=== PATIENT | female | born 1975 ===

== ENCOUNTER 2017-01-27 10:38 | Emergency (ER) | payer MEDICAID ==
--- NOTE | 2017-01-27 11:34 | C.PDOC ---
History Of Present Illness 41 y/o female presents to the ED due to concern for a wound infection. Patient is s/p laparotomy performed 2 weeks ago. Patient is s/p wound valuation and staple removal by Dr. Johnson on 01/24. Patient is concerned for flaking around wound site. She denies pain, discharge, swelling, redness, or fever. CONCERN FOR WOUND INFXN. S/P LAPAROTOMY 2 WKS AGO. S/P WOUND EVAL AND STAPLE REMOVAL W DR JOHNSON 01/24. CONCERNED FOR FLAKING AT WOUND SITE. NO PAIN, DC, SWELL , REDNESS, FEVER EXAM NAD SKIN MIDLINE ABD INCISIONM HEALING. DRIED SKIN @ SITE. NONTEND, NO ERYTHEMA, FLUCTUANCE, PAIN. Time Seen by Provider: 01/27/17 11:08 Chief Complaint (Nursing): Wound Check History Per: Patient History/Exam Limitations: no limitations Current Symptoms Are (Timing): Still Present Quality Of Symptoms: denies: Painful, Swollen, Draining Additional History Per: Patient Past Medical History Reviewed: Historical Data, Nursing Documentation, Vital Signs Vital Signs: Last Vital Signs Temp 97.9 F 01/27/17 12:04 Pulse 72 01/27/17 12:04 Resp 18 01/27/17 12:04 BP 100/60 01/27/17 12:04 Pulse Ox 100 01/27/17 12:04 - Medical History PMH: Gall Bladder Disease Surgical History: Cholecystectomy Family History: States: Unknown Family Hx - Social History Hx Alcohol Use: No Hx Substance Use: No - Immunization History Hx Tetanus Toxoid Vaccination: No Hx Influenza Vaccination: Yes Hx Pneumococcal Vaccination: No Review Of Systems Except As Marked, All Systems Reviewed And Found Negative. Constitutional: Negative for: Fever, Chills Skin: Positive for: Other (+concern for wound infection s/p laparotomy. no swelling, discharge, redness ) Physical Exam - Physical Exam Appears: Non-toxic, No Acute Distress Skin: Normal Color, Warm, Dry, Other (+midline abdominal incision, healing. Dried skin at site. Nontender, no erythema, fluctuance, or pain ) Head: Atraumatic Eye(s): bilateral: Normal Inspection Oral Mucosa: Moist Chest: Symmetrical Cardiovascular: Rhythm Regular Respiratory: Normal Breath Sounds Gastrointestinal/Abdominal: Soft, No Tenderness, No Guarding, No Rebound Back: Normal Inspection Extremity: Normal ROM, Capillary Refill (less than 2 seconds ) Neurological/Psych: Oriented x3, Normal Speech, Normal Cognition Gait: Steady ED Course And Treatment O2 Sat by Pulse Oximetry: 99 (on RA) Pulse Ox Interpretation: Normal Disposition Counseled Patient/Family Regarding: Diagnosis, Need For Followup - Disposition Referrals: [facility] [Outside] [facility] [Outside] Disposition: HOME/ ROUTINE Disposition Time: 11:37 Condition: GOOD Instructions: Chronic Wound Care (ED) - Clinical Impression Clinical Impression: Encounter for evaluation of wound - Scribe Statement The provider has reviewed the documentation as recorded by the Scribe (Ludivina Vaca) Provider Attestation: All medical record entries made by the Scribe were at my direction and personally dictated by me. I have reviewed the chart and agree that the record accurately reflects my personal performance of the history, physical exam, medical decision making, and the department course for this patient. I have also personally directed, reviewed, and agree with the discharge instructions and disposition.
[2017-01-27 12:05] VITALS: BP 100/60; PULSE 72; RESP 18; TEMP 97.9
[2017-01-27 13:53] VITALS: O2SAT 99
== END 2017-01-27 12:05 | disposition home or self-care (01) ==
LOC: C.ER 10:38
DX: Z48.89 Encounter for other specified surgical aftercare (principal)